=== PATIENT | male | born 1960 | race African-American/Black ===

== ENCOUNTER 2017-09-18 12:05 | Emergency (ER) | payer SELFPAY ==
[~2017-09-18] VITALS: Ht 167.6 cm; Wt 87.0 kg
[2017-09-18 13:49] VITALS: BP 144/81
== END 2017-09-18 13:48 | disposition left against medical advice (07) ==
LOC: ER 12:12
DX: G40.909 Epilepsy, unspecified, not intractable, without status epilepticus (principal); R03.0 Elevated blood-pressure reading, without diagnosis of hypertension; Z72.0 Tobacco use
CPT/HCPCS: 99283

== ENCOUNTER 2017-09-19 10:27 | Emergency (ER) | payer SELFPAY ==
[~2017-09-19] VITALS: Ht 170.2 cm; Wt 78.0 kg
[2017-09-19] MEDS ORDERED: SODIUM CHLORIDE 0.9% 1,000 ML IV ONE (10:40)
[2017-09-19] MEDS ORDERED: MIDAZOLAM HCL 2 MG/2 ML VIAL IM ONE (10:45)
[2017-09-19 12:12] LABS: CHLORIDE 102 mEq/L (98-107)
[2017-09-19 12:14] LABS: PARTIAL THROMBOPLASTIN TIME 25.9 sec (23.4-31.0); PROTHROMBIN TIME 10.6 sec (9.4-11.6)
[2017-09-19 12:19] LABS: ETHANOL BLOOD < 10 mg/dL
[2017-09-19 12:20] LABS: METHADONE URINE SCREEN NEGATIVE (NEGATIVE); OPIATES URINE SCREEN NEGATIVE (NEGATIVE); PHENCYCLIDINE URINE SCREEN NEGATIVE (NEGATIVE)
[2017-09-19 12:21] LABS: CANNABINOID URINE SCREEN NEGATIVE (NEGATIVE)
[2017-09-19 12:24] LABS: *BARBITURATES SCREEN URINE NEGATIVE (NEGATIVE); *BENZODIAZEPINES SCREEN URINE NEGATIVE (NEGATIVE)
[2017-09-19 12:27] LABS: *AMPHETAMINES SCREEN URINE NEGATIVE (NEGATIVE); *COCAINE SCREEN URINE NEGATIVE (NEGATIVE)
[2017-09-19] MEDS ORDERED: PHENYTOIN SODIUM 1,000 MG in SODIUM CHLORIDE 0.9% 100 ML IV ONE (12:45)
[2017-09-19 12:52] LABS: BASOPHILS % 0.7 % (0.0-2.0); EOSINOPHILS % 0.5 % (0.0-5.0); HEMATOCRIT. 40.1 % (42.0-52.0); HEMOGLOBIN. 13.7 g/dL (14.0-18.0); LYMPHOCYTES % 17.6 % (20.0-50.0); MEAN CORPUSCULAR HEMOGLOBIN 30.6 pg (28.0-32.0); MEAN CORPUSCULAR VOLUME 89.5 fL (80.0-94.0); MONOCYTES % 14.6 % (2.0-8.0); NEUTROPHILS % 66.6 % (40.0-76.0); RED BLOOD CELL COUNT 4.48 mill/uL (4.7-6.1); RED CELL DISTRIBUTION WIDTH 13.8 % (11.6-14.6)
[2017-09-19 15:09] VITALS: BP 124/66
== END 2017-09-19 15:59 | disposition home or self-care (01) ==
LOC: ER 10:35
DX: R56.9 Unspecified convulsions (principal); Z91.19 Patient's noncompliance with other medical treatment and regimen
CPT/HCPCS: 36415; 70450; 70486; 72125; 80048; 80185; 80305; 82962; 85025; 85610; 85730; 96365; 96366; 96372; 99285; G0482; J1165; J2250; J7030; Z7610; J7050